=== PATIENT | male | born 1980 | race Caucasian/White ===

== ENCOUNTER 2016-10-06 05:13 | Emergency (ER) | payer OTHER ==
[~2016-10-06] VITALS: Ht 170.2 cm; Wt 81.8 kg
[~2016-10-06 05:13] MED LIST: BUPR75 PO; FLUO40CA7 PO; QUET300XR PO
[2016-10-06 05:16] VITALS: BP 132/84
== END 2016-10-06 06:30 | disposition left against medical advice (07) ==
LOC: EMS 05:15
DX: Z04.6 Encounter for general psychiatric examination, requested by authority (principal); Z53.21 Procedure and treatment not carried out due to patient leaving prior to being seen by health care provider